=== PATIENT | male | born 1985 | race Caucasian/White ===

== ENCOUNTER 2021-11-07 01:26 | Emergency (ER) | payer BC, SELFPAY ==
[2021-11-07 01:32] VITALS: BP 126/80; PULSE 107; RESP 18; TEMP 36.3; O2SAT 99
[2021-11-07] MEDS: Pantoprazole 40 MG VIAL IVP (01:40)
[2021-11-07] MEDS: Normal Saline 1,000 ML 1000 ML IV (01:40)
[2021-11-07] MEDS: Ondansetron 4 MG/2 ML VIAL IVP (01:40)
--- NOTE | 2021-11-07 01:42 | W.ED.GENAD ---
Discharge Plan Disposition Patient Disposition: HOME Condition: Good Discharge Details Clinical Impression: Gastroenteritis, Dehydration Primary Care Provider: None,None ED Provider: London Banda Home Meds and New Rx's Prescriptions: No Action pantoprazole 40 mg Tablet,Delayed Release (Dr/Ec) 40 mg PO DAILY Discharge Instructions Instructions: Dehydration (ED), Gastroenteritis (ED) Additional Instructions: At this time your symptoms are consistent with a gastroenteritis likely from something that you ate. This usually takes 24 to 48 hours to improve. Please take the Zofran as needed to help with nausea. Continue to hydrate yourself at home, stick with a easy bland diet of crackers, rice, bananas, and toast. Please take your home pantoprazole, and avoid any spicy foods. As we discussed, you do have some gallstones that were noted on your CAT scan. This was an incidental finding and I do not think it is the cause of your symptoms tonight. However in the future if you do develop right upper quadrant pain, this is likely what it would be from. Please avoid greasy or fatty foods. If you notice any worsening of your symptoms, or any new symptoms such as vomiting, diarrhea, fever, chills, shortness of breath, chest pain, numbness, weakness, or fainting , please return immediately to the emergency department for reevaluation. Please follow up with your primary care provider as soon as possible for reassessment and reevaluation. As always, it was a pleasure participating in your medical care today. Medical Decision Making 36-year-old male with a past medical history of gastric ulcers, no previous abdominal surgeries, presents today for vomiting that started at 11:30 PM. States that every 30 minutes he has an episode of vomiting, as well as diarrhea. He denies any hematochezia, melena or acholic stool. He denies any chest pain or shortness of breath. He states that he did eat a piece of pizza from home use this evening, but other people ate a piece as well and no one else was. He admits to periumbilical pain, but denies any other significant pain. He denies any urinary complaints. No genital complaints. No other complaints this time. No other modifying factors. Exam demonstrates dry mucous membranes, mild periumbilical tenderness, no guarding or rebound no. Differential is highest for viral or foodborne illness, we will rehydrate, give Protonix, if CT scan to rule out pancreatitis gallbladder or appendix pathology, will monitor closely and reassess. 3:[address] scan results have returned, no evidence of an acute surgical abdomen requiring surgical intervention. There is evidence of mild enteritis enterocolitis, there is some gallstones, but the patient symptomatology is clinically inconsistent with acute cholecystitis or biliary colic. Differential diagnosis at this time is highest for viral or foodborne illness. He has been rehydrated with a liter of normal saline, he feels much better and much less nauseous. He has been able to tolerate p.o. well. Patient stable for discharge. Laboratory work-up stable, minimal white count, no bandemia. Electrolytes stable, lipase normal. We will give a small bottle of Zofran for home use. Discussed red flags which to return. I have extensively reviewed the treatment plan and discharge instructions with the patient. I have addressed all patient concerns at this time. The patient was made aware of what symptoms to monitor for that would warrant a return to the emergency department. Discussed the plan with the patient, they demonstrate verbal understanding and agreement with our assessment and plan at this time. The documentation in this chart was dictated using adflyer dictation software. Please excuse any dictation errors. FINDINGS: Liver: Fatty infiltration. No mass. Gallbladder and bile ducts: Multiple calcified stones. No ductal dilation. Pancreas: Normal. No ductal dilation. Spleen: Normal. No splenomegaly. Adrenal glands: Normal. No mass. Kidneys and ureters: Normal. No hydronephrosis. Stomach and bowel: Mild small bowel thickening. Fluid levels versus liquid stool in the colon No obstruction. Appendix: No evidence of appendicitis. Intraperitoneal space: Unremarkable. No free air. No significant fluid collection. Vasculature: Unremarkable. No abdominal aortic aneurysm. Lymph nodes: Unremarkable. No enlarged lymph nodes. Urinary bladder: Unremarkable as visualized. Reproductive: Unremarkable as visualized. Bones/joints: Unremarkable. No acute fracture. Soft tissues: Tiny fat containing periumbilical hernia. IMPRESSION: Nonspecific nonobstructed bowel gas pattern which may represent mild enteritis/enterocolitis/diarrheal disease Gallstones Tiny fat containing periumbilical hernia Thank you for allowing us to participate in the care of your patient. Dictated and Authenticated by: Sanju Quiroz MD 11/07/2021 2:26 AM Eastern Time ([place] & [place]) HPI General Date/Time Provider Initiated Documentation: 11/07/21 01:33. HPI Narrative: 36-year-old male with a past medical history of gastric ulcers, no previous abdominal surgeries, presents today for vomiting that started at 11:30 PM. States that every 30 minutes he has an episode of vomiting, as well as diarrhea. He denies any hematochezia, melena or acholic stool. He denies any chest pain or shortness of breath. He states that he did eat a piece of pizza from home use this evening, but other people ate a piece as well and no one else was. He admits to periumbilical pain, but denies any other significant pain. He denies any urinary complaints. No genital complaints. No other complaints this time. No other modifying factors. Related Data Home Medications Medication Instructions Recorded Confirmed pantoprazole 40 mg tablet,delayed 40 mg PO DAILY 11/07/21 11/07/21 release Allergies Allergy/AdvReac Type Severity Reaction Status Date / Time No Known Allergies Allergy Unverified 11/07/21 01:38 General Stated Complaint: Nausea/Vomit/Diar JANETTE: 3 Review of Systems All systems reviewed & are unremarkable except as noted in HPI and below PFSH All Active Problems (Updated 11/07/21 @ 03:12 by London Banda DO) Gastroenteritis (Acute) Dehydration (Acute) Social History Smoking/Tobacco Use Status: Current every day Tobacco Type: cigarettes Smoking risk assessment performed?: Yes Alcohol Intake: current Alcohol Intake frequency: a few times a week Alcohol type: beer Drug use: Never Substance use type: does not use Do you feel safe at home: Yes Do you feel safe in your relationship?: Yes Exam Narrative Exam Narrative: 1.Const: Well-nourished, Well-developed, appearing stated age 2.Eyes: PERRL, no conjunctival injection, and symmetrical lids. 3.ENT: Atraumatic external nose and ears. Notably dry MM. Neck: Symmetric, trachea midline, No thyromegaly. 4.CVS: +S1/S2, No murmurs or gallops. Peripheral pulses 2+ and equal in all extremities. Brisk capillary refill in all extremities. 5.RESP: Unlabored respiratory effort. Clear to auscultation bilaterally. No wheezes rales or rhonchi 6.GI: Soft, nondistended, no guarding or rebound. No. McBurney's point. Negative Duckworth sign. Negative obturator and psoas sign. Mild periumbilical tenderness. No inguinal hernia. No genital tenderness. 7.MSK: Normocephalic/Atraumatic, Extremities w/o deformity or ttp No cyanosis or clubbing, Normal movement of all extremities 8.Skin: Warm, Dry. No rashes or lesions. 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 Sensation grossly intact, no focal neurologic deficits. 10.Psych: (AAO) x3. Appropriate mood and affect Course Vital Signs Vital signs: Vital Signs Temperature 36.3 C L 11/07/21 01:32 Pulse 107 H 11/07/21 01:32 Respiratory Rate 18 11/07/21 01:32 Blood Pressure 126/80 11/07/21 01:32 Pulse Oximetry 99 11/07/21 01:32 Temperature 36.3 C L 11/07/21 01:32 Temperature Source Skin 11/07/21 01:32 Pulse 107 H 11/07/21 01:32 Respiratory Rate 18 11/07/21 01:32 Respiratory Effort Non-Labored 11/07/21 01:35 Blood Pressure 126/80 11/07/21 01:32 Blood Pressure Position Sitting 11/07/21 01:32 Pulse Oximetry 99 11/07/21 01:32 Oxygen Delivery Method Room Air 11/07/21 01:32 Oxygen Flow Rate 0 11/07/21 01:32 Pain Level 8 11/07/21 01:32
[2021-11-07 01:50] LABS: Abs Immature Grans 0.03 10^3/uL (0.0-0.06); Absolute Basophil Count 0.04 10^3/uL (0.0-0.2); Absolute Lymphocyte Count 1.18 10^3/uL (1.2-3.4); Absolute Monocyte Count 0.62 10^3/uL (0.1-0.8); Basophils % 0.3; Eosinophils % 3.2; HCT 48.4 % (40.0-50.0); HGB 16.1 g/dL (13.5-17.5); Immature Grans % 0.2; Lymphocytes % 9.4; MCH 27.9 pg (27.0-33.0); MCHC 33.3 % (32.0-36.0); MCV 84 fL (80-95); MPV 10.6 fL (8.0-11.0); Monocytes % 4.9; Platelet Count 248 10^3/uL (130-400); RBC 5.77 10^6/uL (4.36-5.78); RDW 12.5 % (11.8-14.1); RDW-SD 37.7 fL; WBC 12.56 10^3/uL (4.4-10.8)
--- NOTE | 2021-11-07 01:59 | DI.CT_ITS ---
Exam(s) CT ABDOMEN PELVIS WO EXAM: CT ABDOMEN PELVIS WO CLINICAL HISTORY: vomiting, diarrhea, umbilical abdominal pain. TECHNIQUE: Imaging Protocol: Axial computed tomography images with coronal and sagittal reformatted images were created and reviewed. COMPARISON: No exams were available for comparison FINDINGS: ABDOMEN: Lung Bases: Normal where visualized. Liver: There is diffuse fatty infiltration of the liver. No measurable mass. Gallbladder and biliary tract: Cholelithiasis. No biliary ductal dilatation. Pancreas: Normal density, no abnormal calcifications or inflammatory process. Spleen: Normal. Kidneys: Normal size, contour and axis.No radiodense stones or obstructive uropathy. No masses seen. Adrenal glands: No mass is seen. Lymph nodes: Within normal limits. Abdominal Aorta: Abdominal portion non-dilated. PELVIS: Bladder:Symmetric distention, no gross wall thickening. Bowel: Mild bowel wall thickening is seen in loops of small bowel in the left abdomen. There is also fluid seen throughout the colon. Appendix is unremarkable. Peritoneal cavity: No ascites, collection or mesenteric inflammatory response. No free air. Reproductive organs: Within normal limits. Bones: Within normal limits. Soft Tissues: Within normal limits. IMPRESSION: 1. Mild bowel wall thickening seen in the small bowel loops in the left colon suspicious for an infla mmatory infectious enteritis. 2. Fluid seen throughout the colon which can be seen in a diarrheal illness. 3. Cholelithiasis. No biliary ductal dilatation. RADIATION DOSE DELIVERED: 1,069.5mGy.cm Total DLP DATA REPOSITORY: All CT scans at this facility are submitted to the National Radiology Data Registry (NRDR) Dose Index Registry (DIR) with the [employer] (A[employer]). RADIATION OPTIMIZATION: All CT scans at this facility use at least one of these dose optimization te chniques: automated exposure control; mA and/or kV adjustment per patient size (includes targeted exa ms where dose is matched to clinical indication); or iterative reconstruction.
[2021-11-07 02:05] LABS: ALT 80 U/L (16-63); AST 28 U/L (15-37); Albumin 4.3 g/dL (3.4-5.0); Alkaline Phosphatase 104 U/L (46-116); Anion Gap 8.2 mmol/L (3-11); BUN 16 mg/dL (7-18); Bilirubin, Total 0.7 mg/dL (0.2-1.0); CO2 27.8 mmol/L (21.0-32.0); Calcium 9.2 mg/dL (8.5-10.1); Chloride 103 mmol/L (98-107); Glucose 169 mg/dL (74-106); Lipase 98 U/L (73-393); Potassium 4.1 mmol/L (3.5-5.1); Sodium 139 mmol/L (136-145); Total Protein 7.9 g/dL (6.4-8.2)
--- NOTE | 2021-11-07 02:27 | DI.VRAD_ITS ---
PROCEDURE INFORMATION: Exam: CT Abdomen And Pelvis Without Contrast Exam date and time: 11/07/2021 1:45 AM Age: 36 years old Clinical indication: Patient HX: Vomiting, diarrhea, umbilical abdominal pain TECHNIQUE: Imaging protocol: Computed tomography of the abdomen and pelvis without contrast. Radiation optimization: All CT scans at this facility use at least one of these dose optimization techniques: automated exposure control; mA and/or kV adjustment per patient size (includes targeted exams where dose is matched to clinical indication); or iterative reconstruction. COMPARISON: No relevant prior studies available. FINDINGS: Liver: Fatty infiltration. No mass. Gallbladder and bile ducts: Multiple calcified stones. No ductal dilation. Pancreas: Normal. No ductal dilation. Spleen: Normal. No splenomegaly. Adrenal glands: Normal. No mass. Kidneys and ureters: Normal. No hydronephrosis. Stomach and bowel: Mild small bowel thickening. Fluid levels versus liquid stool in the colon No obstruction. Appendix: No evidence of appendicitis. Intraperitoneal space: Unremarkable. No free air. No significant fluid collection. Vasculature: Unremarkable. No abdominal aortic aneurysm. Lymph nodes: Unremarkable. No enlarged lymph nodes. Urinary bladder: Unremarkable as visualized. Reproductive: Unremarkable as visualized. Bones/joints: Unremarkable. No acute fracture. Soft tissues: Tiny fat containing periumbilical hernia. IMPRESSION: Nonspecific nonobstructed bowel gas pattern which may represent mild enteritis/enterocolitis/diarrheal disease Gallstones Tiny fat containing periumbilical hernia Dictated and Authenticated by: Sanju Quiroz MD. Ordering:ERNESTO Callahan MD
[2021-11-07 03:33] VITALS: BP 117/68; PULSE 88; RESP 14; TEMP 37.3; O2SAT 96
[2021-11-07] MEDS: Ondansetron O.D.T. 4 MG TABEF, 3 TABS/BTL PO (03:35)
== END 2021-11-07 03:50 | disposition home or self-care (01) ==
PROVIDERS: Emergency Provider Student in an Organized Health Care Education/Training Program
DX: K52.9 Noninfective gastroenteritis and colitis, unspecified (principal); E86.0 Dehydration; R19.7 Diarrhea, unspecified; R10.9 Unspecified abdominal pain
CPT/HCPCS: 80053; 83690; 96361; 96374; 96375; 99284; 74176; 81003; 85025; J2405

== ENCOUNTER 2022-09-11 13:45 | Outpatient (REF) | payer BC, SELFPAY ==
[2022-09-11 21:29] LABS: Abs Immature Grans 0.01 10^3/uL (0.0-0.06); Absolute Basophil Count 0.03 10^3/uL (0.0-0.2); Absolute Eosinophil Count 0.28 10^3/uL (0.0-0.7); Absolute Lymphocyte Count 2.28 10^3/uL (1.2-3.4); Absolute Monocyte Count 0.48 10^3/uL (0.1-0.8); Absolute Neutrophil Count 3.37 10^3/uL (1.2-6.7); Basophils % 0.5; Eosinophils % 4.3; HCT 44.8 % (40.0-50.0); HGB 15.1 g/dL (13.5-17.5); Immature Grans % 0.2; Lymphocytes % 35.3; MCH 27.8 pg (27.0-33.0); MCHC 33.7 % (32.0-36.0); MCV 83 fL (80-95); MPV 11.1 fL (8.0-11.0); Monocytes % 7.4; Neutrophils % 52.3; Platelet Count 270 10^3/uL (130-400); RBC 5.43 10^6/uL (4.36-5.78); RDW 12.7 % (11.8-14.1); RDW-SD 37.9 fL; WBC 6.45 10^3/uL (4.4-10.8)
[2022-09-11 22:16] LABS: ALT 64 U/L (16-63); AST 27 U/L (15-37); Albumin 4.3 g/dL (3.4-5.0); Alkaline Phosphatase 100 U/L (46-116); Anion Gap 8.5 mmol/L (3-11); BUN 12 mg/dL (7-18); Bilirubin, Total 0.7 mg/dL (0.2-1.0); CO2 29.5 mmol/L (21.0-32.0); Calcium 9.7 mg/dL (8.5-10.1); Chloride 102 mmol/L (98-107); Estimated GFR 100.66 (mL/min/1.73m2); Glucose 102 mg/dL (74-106); Potassium 4.4 mmol/L (3.5-5.1); Sodium 140 mmol/L (136-145); TSH (W/Ref FT4) 0.96 uIU/mL (0.36-3.74); Total Protein 7.3 g/dL (6.4-8.2)
[2022-09-14 02:15] LABS: COVID-19 RT-PCR UVMMC Result Negative (Negative)
== END 2022-09-11 13:46 | disposition home or self-care (01) ==
LOC: LBN 13:45
PROVIDERS: Visit Provider Physician Assistant Medical
DX: R53.83 Other fatigue (principal); Z20.822 Contact with and (suspected) exposure to COVID-19
CPT/HCPCS: 80053; U0003; 84443; 85025

== ENCOUNTER 2022-09-11 22:30 | Emergency (ER) | payer BC, SELFPAY ==
--- NOTE | 2022-09-11 22:30 | DI.RAD_ITS ---
Exam(s) XR KNEE LT 3V AP,LAT,ELLIE EXAM: XR KNEE LT 3V AP,LAT,ELLIE CLINICAL HISTORY: left knee pain/injury. TECHNIQUE: 2D digital imaging was performed. Three views. COMPARISON: No exams were available for comparison FINDINGS: BONES: No acute fracture is present. No bony destructive lesion is seen. JOINTS: The knee is normally aligned. No joint effusion is seen. SOFT TISSUE: Normal. IMPRESSION: Normal radiographs of the left knee. DATA REPOSITORY: RADIATION DOSE DELIVERED:
[2022-09-11 22:34] VITALS: BP 126/84; PULSE 89; RESP 19; TEMP 36.1; O2SAT 98
[2022-09-11] MEDS: Ibuprofen 600 MG TAB PO (23:02)
--- NOTE | 2022-09-11 23:06 | W.ED.GENAD ---
Discharge Plan Disposition Patient Disposition: Home Discharge Details Clinical Impression: Contusion of knee Primary Care Provider: None,None ED Provider: Kristi Alberts Home Meds and New Rx's Prescriptions: Continued pantoprazole 40 mg Tablet,Delayed Release (Dr/Ec) 40 mg PO DAILY Discharge Instructions Instructions: Contusion in Adults (ED) Additional Instructions: Ibuprofen and Tylenol as needed for pain Wear your knee brace Use your crutches with ambulation Repeat x-ray in 1 week with persistent pain recommended Establish care with primary care physician, you should receive notification Listing orthopedics for follow-up as needed Stand Alone Forms: Work Release Referrals: Shiraz Winn MD [ [facility] STAFF PHYSICIAN] - Discharge Data Discharge Date/Time-TO BE ENTERED AT DEPARTURE: 09/11/22 23:21 Medical Decision Making 37-year-old male presents with left knee injury, x-ray does not show evidence of acute abnormality for my review, pending radiology interpretation Placed in hinged knee brace, given crutches Ibuprofen and Tylenol as needed for pain Repeat x-ray in 1 week with persistent pain recommended Early return precautions reviewed and patient expressed understanding Per radiology interpretation my review, x-ray negative for acute abnormality Medical Records Medical records reviewed: Yes I reviewed the patient's medical records. Lab Data Lab results reviewed: Yes I reviewed the patient's lab results. HPI General Date/Time Provider Initiated Documentation: 09/11/22 22:32. HPI Narrative: This 37-year-old male presents with fall on left knee at home. Denies any additional injuries. Otherwise reportedly healthy. Has pain with weightbearing per patient. Related Data Home Medications Medication Instructions Recorded Confirmed pantoprazole 40 mg tablet,delayed 40 mg PO DAILY 11/07/21 09/11/22 release Allergies Allergy/AdvReac Type Severity Reaction Status Date / Time No Known Allergies Allergy Unverified 09/11/22 22:50 General Stated Complaint: Fall/Non TraumaCriteria JANETTE: 4 PFSH All Active Problems (Updated 09/11/22 @ 23:11 by CINDY Urena) Contusion of knee (Acute) Social History Smoking/Tobacco Use Status: Current every day Tobacco Type: cigarettes Smoking risk assessment performed?: Yes Alcohol Intake: current Alcohol Intake frequency: a few times a week Alcohol type: beer Drug use: Never Substance use type: does not use Do you feel safe at home: Yes Do you feel safe in your relationship?: Yes Exam Narrative Exam Narrative: 37-year-old male, no acute distress, and left knee pain, predominantly over MCL region, ecchymosis noted approximately quarter size Flexion extension intact, no obvious joint laxity No tenderness to left hip or left ankle Neurovascularly intact Const General: cooperative, comfortable and no acute distress Extrem Other: Left knee with ecchymosis over the medial aspect, hematoma forming, no joint laxity no tenderness with palpation to hip or ankle, neurovascularly intact Course Vital Signs Vital signs: Vital Signs Temperature 36.1 C L 09/11/22 22:34 Pulse 89 09/11/22 22:34 Respiratory Rate 19 09/11/22 22:34 Blood Pressure 126/84 09/11/22 22:34 Pulse Oximetry 98 09/11/22 22:34 Temperature 36.1 C L 09/11/22 22:34 Temperature Source Tympanic 09/11/22 22:34 Pulse 89 09/11/22 22:34 Respiratory Rate 19 09/11/22 22:34 Respiratory Effort Normal 09/11/22 22:38 Blood Pressure 126/84 09/11/22 22:34 Blood Pressure Position Standing 09/11/22 22:34 Pulse Oximetry 98 09/11/22 22:34 Oxygen Delivery Method Room Air 09/11/22 22:34 Oxygen Flow Rate 0 09/11/22 22:34 Pain Level 7 09/11/22 23:02
--- NOTE | 2022-09-11 23:15 | DI.VRAD_ITS ---
PROCEDURE INFORMATION: Exam: XR Left Knee Exam date and time: 09/11/2022 10:54 PM Age: 37 years old Clinical indication: Patient HX: Left knee pain/injury TECHNIQUE: Imaging protocol: Radiologic exam of the left knee. Views: 3 views. COMPARISON: No relevant prior studies available. FINDINGS: Bones/joints: Normal. Soft tissues: Normal. IMPRESSION: No acute findings. Dictated and Authenticated by: Sanju Quiroz MD. Ordering:JAD Berry MD
--- NOTE | 2022-09-12 00:05 | NUR.NOTE ---
Referral per Kristi Alberts to care management to establish care with PCP as soon as available. Put the referral in the care clinician's box for assistance.Nursing Note:
--- NOTE | 2022-09-16 13:14 | NUR.NOTE ---
Nursing Note: Patient called stating that he had not heard from anyone about a PCP. I checked the chart and have put a referral for the Care Managers for needs PCP, establish care/follow up ED.
--- NOTE | 2022-09-23 15:16 | NUR.NOTE ---
Nursing Note: Accessed pt chart to see about referral to needs PCP. Two different people did referrals and the patient stated he did not hear from anyone. Today he called again. I made out a referral and faxed it to Dr. Segovia;[facility] for follow up. Dr. Segovia was account consultant for telephone call for that day. I spoke to the patient and notified him that I had faxed the referral and who to so that if he does not receive a call that he can call them for the appt. that he needs.
== END 2022-09-11 23:21 | disposition home or self-care (01) ==
PROVIDERS: Emergency Provider Physician Assistant
DX: S80.02XA Contusion of left knee, initial encounter (principal); W19.XXXA Unspecified fall, initial encounter; Y92.009 Unspecified place in unspecified non-institutional (private) residence as the place of occurrence of the external cause
CPT/HCPCS: 73562; 99283

== ENCOUNTER 2022-09-24 18:24 | Outpatient (CLI) | payer BC, SELFPAY ==
--- NOTE | 2022-09-24 | DI.RAD_ITS ---
Exam(s) XR KNEE LT 3V AP,LAT,ELLIE EXAM: XR KNEE LT 3V AP,LAT,ELLIE CLINICAL HISTORY: ACUTE LEFT KNEE PAIN M25.562. TECHNIQUE: 2D digital imaging was performed. COMPARISON: CR,XR XR KNEE LT 3V AP,LAT,ELLIE from 09/11/2022 FINDINGS: 3 views No evidence of fracture. Small amount of increased joint fluid. No joint space narrowing nor osteop hytes nor osseous lesions. On the lateral view there is slight indentation of the articular surface of the lateral femoral condyle. Is sometimes seen pivot shift injury such as ACL tears if there has been recent such trauma. There are no osteochondral defects. IMPRESSION: Subtle findings as above. If clinically indicated follow-up MRI can be performed for added sensitivi ty and specificity. DATA REPOSITORY: RADIATION DOSE DELIVERED:
== END 2022-09-24 18:44 ==
LOC: DI 18:24
PROVIDERS: Visit Provider Nurse Practitioner Family
DX: M25.562 Pain in left knee (principal)
CPT/HCPCS: 73562

== ENCOUNTER 2022-10-15 04:27 | Outpatient (CLI) | payer BC, SELFPAY ==
--- NOTE | 2022-10-15 07:00 | DI.MRI_ITS ---
Exam(s) MR LOWER JOINT LT WO EXAM: MR LOWER JOINT LT WO CLINICAL HISTORY: PAIN,INTERNAL DERANGEMENT LT KNEE, M23.92 TECHNIQUE: Multiplanar multisequence MRI of the knee was performed. COMPARISON: CR XR KNEE LT 3V AP,LAT,ELLIE from 09/24/2022 FINDINGS: EFFUSION: There is small amount of increased joint fluid. There is no large joint effusion. There i s no Tatum cyst in the popliteal fossa. There is abnormal signal in the superolateral aspect of the anterior intra-articular Hoffa fat pad ev ident. There is no abnormal signal in the quadriceps fat pad triangle above the patella. MARROW:There is subarticular bone contusion signal in the outer 3rd of the medial femoral condyle pre dominately over the anterior horn of the medial meniscus. There is no bone contusion in the lateral femoral condyle nor in the tibial plateau nor intraosseous signal abnormality within the fibular head and neck. There are no significant osseous lesions. PATELLOFEMORAL COMPARTMENT: The quadriceps tendon is intact. The patellar ligament is intact. There is small amount of subcutaneous fluid anterior to the mid aspect of the patellar tendon. There is, however, no abnormal signal in the patellar tendon itself There is no significant thinning of the retropatellar cartilage. No evidence of fissure nor signific ant chondral defect. No osteochondral defect at this level.There is no intraosseous signal to sugges t recent patellar dislocation. There are no patellar retinacular tears. CRUCIATE LIGAMENTS: The anterior cruciate ligament is intact.The posterior cruciate ligament is intac t. MEDIAL COMPARTMENT/MEDIAL MENISCUS: There are no tears of the medial meniscus evident.The meniscal ro ot is intact.. There is focal cartilage thinning over the outer 3rd of the femoral condyle with overlying osseous ed man in the subarticular femoral condyle and extending 2 cm upwards towards but not into the medial me taphysis of the distal femur. This edema pattern is unrelated to the nearby MCL.No abnormal intraoss eous signal in tibial plateau. MEDIAL COLLATERAL LIGAMENT: Intact LATERAL COMPARTMENT/LATERAL MENISCUS: There is no evidence of lateral meniscal tear.There are no phuong dral defects, osteochondral defects, subarticular marrow edema, nor osteophytes evident. ILIOTIBIAL BAND: Intact LATERAL COLLATERAL LIGAMENT COMPLEX: The fibular collateral ligament is intact. The biceps femoris t endon is intact.Popliteus muscle and tendon are intact. IMPRESSION: 1. There is subarticular intraosseous edema in the outer 3rd of the medial femoral condyle over the a nterior weight-bearing surface, this emanating upwards from small focal chondral area just above the anterior horn of the medial meniscus. There is, however, no evidence of meniscal tear at this level and there is no formed osteochondral defect at this time. No loose intra-articular body evident. No other bone contusions evident. 2. There are no meniscal tears and there are no cruciate ligament tears nor collateral ligament tears . 3. There is significant abnormal signal within the superolateral aspect of the anterior intra-articul ar Hoffa fat pad, this subjacent to the lateral aspect of the inferior pole the patella. This findin g is sometimes associated with an element of impingement syndrome. 4. Mild subcutaneous fluid noted anterior to the patellar ligament. However, there is no abnormal in trasubstance signal abnormality in the patellar ligament itself. This fluid does not extend into the prepatellar level and there is no abnormal intraosseous signal in the patella itself. DATA REPOSITORY:
== END 2022-10-15 04:47 ==
LOC: DI 04:27
PROVIDERS: Visit Provider Student in an Organized Health Care Education/Training Program
DX: M23.92 Unspecified internal derangement of left knee (principal)
CPT/HCPCS: 73721

== ENCOUNTER 2022-10-31 22:31 | Emergency (ER) | payer BC, SELFPAY ==
[2022-10-31 22:36] VITALS: BP 115/73; PULSE 62; RESP 16; TEMP 36.5; O2SAT 97
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
--- NOTE | 2022-11-04 16:58 | NUR.NOTE ---
Nursing Note: Accessed chart for [facility] billing purposes.
--- NOTE | 2022-11-04 17:03 | NUR.NOTE ---
Nursing Note: Accessed chart for [facility] billing purposes.
== END 2022-10-31 23:36 | disposition home or self-care (01) ==
PROVIDERS: Emergency Provider Emergency Medicine Emergency Medical Services
DX: S61.432A Puncture wound without foreign body of left hand, initial encounter (principal); W26.0XXA Contact with knife, initial encounter
CPT/HCPCS: 99282

== ENCOUNTER 2024-06-03 17:00 | Outpatient (REF) | payer BC, SELFPAY ==
[2024-06-03 15:12] LABS: ALT 78 U/L (16-63); AST 30 U/L (15-37); Albumin 3.9 g/dL (3.4-5.0); Alkaline Phosphatase 110 U/L (46-116); Anion Gap 8.5 mmol/L (3-11); BUN 14 mg/dL (7-18); Bilirubin, Total 0.69 mg/dL (0.2-1.0); CO2 28.5 mmol/L (21.0-32.0); Calcium 8.8 mg/dL (8.5-10.1); Calculated LDL 138 mg/dL (<100); Chloride 105 mmol/L (98-107); Cholesterol 216 mg/dL (<200); Estimated GFR 99.41 (mL/min/1.73m2); Glucose 102 mg/dL (74-106); HDL Cholesterol 49 mg/dL (40-60); Potassium 4.3 mmol/L (3.5-5.1); Sodium 142 mmol/L (136-145); Total Protein 6.9 g/dL (6.4-8.2); Triglyceride 147 mg/dL (<150)
--- OUTSIDE RECORDS SUMMARY | 2024-06-03 17:02 | XMS_ITS | Continuity of Care Document ---
Author Organization [facility] Ambulatory Clinics Address [address] [place] [address] Encounter [facility] NBR [id number] Date(s): 11/04/22 - 11/04/22 [facility] Ambulatory Clinics [address] [place], [place] [address] Encounter Diagnosis Conjunctivitis(Discharge Diagnosis) - 11/04/22 Acute URI(Discharge Diagnosis) - 11/04/22 Discharge Disposition: Home or Self Care Attending Physician: Chanda Covarrubias APRN Allergies, Adverse Reactions, Alerts No Known Medication Allergies Functional Status 11/04/22 Other exposure to Infectious Disease Non e Medications pantoprazole 40 mg oral delayed release tablet See Instructions, TAKE 1 TABLET BY MOUTH EVERY DAY 30 MINUTES BEFORE BREAKFAST, # 30 tab, 0 Refill(s), Pharmacy: [facility] #[id number] Start Date: 10/31/22 Status: Ordered Vital Signs Most recent to oldest [Reference Range]: 1 Temperature Tympanic [36.6-37.9 Deg C] 3 6.3 Deg C *LOW* (11/04/22 8:01 PM) Peripheral Pulse Rate [60-100 bpm] 65 bp m (11/04/22 8:01 PM) Respiratory Rate [12-24 br/min] 16 br/mi n (11/04/22 8:01 PM) Blood Pressure [90-140/60-90 mmHg] 120/8 5mmHg (11/04/22 8:01 PM) Social History Social History Type Response Tobacco Never tobacco user T obacco Use:. Sex Physician Outpatient Note * Chanda Covarrubias APRN: PERFORM Event Display: Office Clinic Note Physician Authored Date: [id number] CAROLINA JUAREZ :1985 Age:37 years Sex:Male Visit Date:11/04/2022 Chief Complaint eye hurts to blind History of Present Illness Patient is a 37-year-old male who presents today with a chief complaint of left eye redness and positive for drainage and presence of URI symptoms??over the last 2 days. ??He states that his eye has been more irritated, he noted the left lid to be??swollen and noted positive exudate throughout the day.?? He does report that he has had mild congestion and left??ear fullness??over the last few daysas well. Review of Systems see HPI Physical Exam Vitals & Measurements T:??36.3?C ??(Tympanic)?? HR:??65??(Peripheral)?? RR:??16?? BP:??120/85?? SpO2:??100%?? General: Well-appearing, no acute distress, alert and oriented x3. Skin: No concerning lesions in examined areas. Head: Normal cephalic without trauma or injury. Neck: Supple, nontender, normal range of motion Eye: Pupils reactive.?left eye mildly injected. Sclera nonicteric. ??No swelling, obvious foreign bodies. ??Extraocular movement intact. Top lis reddened. ENT ear: Normal external, canal clear, TMs normal bilaterally. ??Nose: No discharge, normal mucosa,no swelling. ??Sinuses: Nontender to percussion. ??Oropharynx: Normal external, mucosal without mass, lesions, ulcerations.?No erythema, exudate, lesions, uvula midline. Cardiovascular: Regular rate and rhythm. ??No murmur, rubs, or gallops. Respiratory: Clear to auscultation bilaterally. ??No wheezes, rales, rhonchi. Medical Decision Making: Patient was evaluated for upper respiratory symptoms. ??Physical exam is unremarkable, vital signs were obtained and reviewed.?Patient will be discharged home with instruction on home care and with viral syndrome, Tylenol or ibuprofen for pain or fever, increase fluid intake, provide rest.?? Warm soaks to eye as needed.??Follow-up with primary care for lack of improvement. ??Seek urgent and/oremergent care for increased shortness of breath, fever, worsening cough or any other worsening or concerning symptoms. Assessment/Plan 1.??Conjunctivitis??H10.9 2.??Acute URI??J06.9 Problem List/Past Medical History Ongoing No qualifying data Historical No qualifying data Medications pantoprazole 40 mg oral delayed release tablet, See Instructions Allergies No Known Medication Allergies Social History Electronic Cigarette/Vaping Electronic Cigarette Use: Never. Tobacco Never tobacco user Tobacco Use:. Electronically Signed on 11/04/22 10:02 PM Chanda Covarrubias APRN
--- OUTSIDE RECORDS SUMMARY | 2024-06-03 17:02 | XMS_ITS | Referral Summary ---
Author Organization [facility] Address [address] [place] [address] Care Team Providers Care Career Technical Counselor Name Role Phone Unknown, Provider Primary Care Provider Unava ilable Social History Tobacco Use Types Packs/Day Years Used Date Smoking Tobacco: Never Assessed Sex and Gender Information Value Date Recorded Sex Assigned at Not on file Legal Sex Male 9:59 EDT Gender Identity Not on file Sexual Orientation Not on file Plan of Treatment Not on file Insurance ANTHEM ANTHEM Care Teams Career Technical Counselor Relationship Specialty Start Date End Date Unknown, Provider, PCP - General 10/14/21
--- OUTSIDE RECORDS SUMMARY | 2024-06-03 17:02 | XMS_ITS | Encounter Summary ---
Author Organization [facility] Address [address] [place] [address] Care Team Providers Care First Coat Operator Name Role Phone Unknown, Provider Primary Care Provider Fredi bermudez Encounter Details Date Type Department Care Team (Late st Contact Info) Description 11/27/2021 Lab Requisition [facility] - Main [address] [id number] Antoni Vaughan MD [address] [place] [phone] Gastro-esophageal reflux disease without esophagitis; Personal history of peptic ulcer disease Social History Tobacco Use Types Packs/Day Years Used Date Smoking Tobacco: Never Assessed Sex and Gender Information Value Date Recorded Sex Assigned at Not on file Legal Sex Male 9:59 EDT Gender Identity Not on file Sexual Orientation Not on file documented as of this encounter Plan of Treatment Not on file documented as of this encounter Procedures Procedure Name Priority Date/Time Associated Diagnosis Comments SURGICAL PATHOLOGY Today 11/26/2021 13 :20 EDT Gastro-esophageal reflux disease without esophagitis Personal history of peptic ulcer disease documented in this encounter Results * SURGICAL PATHOLOGY (11/26/2021 13:20 EDT) Note to Patient The following pathology results have been interpreted by your pathologist and may be available to you before your health provider has had the opportunity to review them. Please allow time for your provider to receive these results and explore management options, if applicable. 11/28/2021 13:47 EDT [facility] Final Diagnosis A. DUODENUM, POLYP, BIOPSY: - Peptic duodenitis. B. STOMACH, ANTRUM, BIOPSY: - Reactive (chemical) gastropathy. - No intestinal metaplasia or dysplasia. - No evidence of Helicobacter pylori on routine H&E stain. C. STOMACH, BODY, BIOPSY: - Oxyntic-type mucosa with no significant pathologic change. - No intestinal metaplasia or dysplasia. - No evidence of Helicobacter pylori on routine H&E stain. D. GASTROESOPHAGEAL JUNCTION, BIOPSY: - Junctional mucosa with focal active inflammation and reactive changes. - No intestinal metaplasia or dysplasia. 11/28/2021 13:47 [facility] Attestation By the signature below, the attending physician certifies that they have 1) personally conducted a gross and/or microscopic examination of the described specimen(s), and/or personally interpreted the results of laboratory testing of the described specimen(s), and 2) personally rendered or confirmed the above diagnosis. 11/28/2021 13:47 [facility] at 1347 Clinical History GERD, hx of peptic ulcer disease, gastric erythema 11/28/2021 13:47 [facility] Gross Description A. Received in formalin labeled ? Kj M. Padgett? and ? duodenal polyp? are 2 mucosal tissue fragments measuring 0.2 x 0.2 x 0.1 cm and 0.3 x 0.2 x 0.1 cm. Entirely submitted in 1 cassette. B. Received in formalin labeled ? Kj M[employer]gett? and ? antrum? are 2 mucosal tissue fragments each measuring 0.2 x 0.1 x 0.1 cm. Entirely submitted in 1 cassette. C. Received in formalin labeled ? Kj M. Padgett? and ? gastric body? are 2 mucosal tissue fragments measuring 0.2 x 0.2 x 0.2 cm and 0.5 x 0.2 x 0.1 cm. Entirely submitted in 1 cassette. D. Received in formalin labeled ? Kj M. Padgett? and ? EGJ? is a single mucosal tissue fragment measuring 0.4 x 0.2 x 0.2 cm. Entirely submitted in 1 cassette. KAYODE TALAMANTES 11/27/2021 12:39 11/28/2021 13:47 [facility] Performing Lab [facility] 13:47 [facility] Scanned Images 11/28/2021 13:47 EDT [facility] Tissue ENTIRE ESOPHAGO-PATRICIO GUIDO MUCOSAL JUNCTION / Unknown 11/26/2021 13:20 EDT 11/27/2021 10:02 EDT Tissue specimen (specimen) PYLORIC ANTRUM STRUCTURE / Unknown 11/26/2021 13:20 EDT 11/27/2021 10:02 EDT Tissue specimen (specimen) GASTRIC CORPUS STRUCTURE / Unknown 11/26/2021 13:20 EDT 11/27/2021 10:02 EDT Tissue specimen (specimen) CARDIOESOPHAGEAL JUNCTION STRUCTURE / Unknown 11/26/2021 13:20 EDT 11/27/2021 10:02 EDT us Antoni Vaughan MD PATHOLOGY ORDERABLES Final Result [facility] [address] [place] [address] documented in this encounter Visit Diagnoses Diagnosis Gastro-esophageal reflux disease without esophagitis Esophageal reflux Personal history of peptic ulcer disease documented in this encounter Care Teams First Coat Operator Relationship Specialty Start Date End Date Unknown, Provider, PCP - General 10/14/21 documented as of this encounter
--- OUTSIDE RECORDS SUMMARY | 2024-06-03 17:02 | XMS_ITS | Clinical Summary ---
Author Organization [facility] Address [address] [place] [address] Care Team Providers Care Cylinder Block Hole Reliner Name Role Phone Unknown, Provider Primary Care Provider Unava ilable Social History Tobacco Use Types Packs/Day Years Used Date Smoking Tobacco: Never Assessed Sex and Gender Information Value Date Recorded Sex Assigned at Not on file Legal Sex Male 9:59 EDT Gender Identity Not on file Sexual Orientation Not on file Plan of Treatment Health Maintenance Due Date Last Done Comments Hepatitis C Screen 1985 Hepatitis B Vaccine (1 of 3 - 19+ 3-dose series) 02/10 COVID-19 Vaccine ( season) 2024 Insurance ANTHEM ANTHEM Care Teams Cylinder Block Hole Reliner Relationship Specialty Start Date End Date Unknown, Provider, PCP - General 10/14/21
--- OUTSIDE RECORDS SUMMARY | 2024-06-03 17:02 | XMS_ITS | Encounter Summary ---
Author Organization [facility] Address [address] [place] [address] Care Team Providers Care Head Rigger Name Role Phone Unknown, Provider Primary Care Provider Fredi bermudez Encounter Details Date Type Department Care Team (Late st Contact Info) Description 09/13/2022 Lab Requisition [facility] - [facility] [address] [place] [address] Outr Resulting Lab, Provider Social History Tobacco Use Types Packs/Day Years [...] Procedure Name Priority Date/Time Associated Diagnosis Comments ZZCOVID-19 TEST [facility] PCR Today 09/11/2022 13:30 EDT COVID-19 TESTING Routine 09/11/2022 13:3 0 EDT documented in this encounter Results * COVID-19 TEST [facility] PCR (09/11/2022 13:30 EDT) Swab ENTIRE NASOPHARYNX / Unknown 09/11/2022 13:30 EDT 09/13/2022 21:02 EDT us Provider Outr Resulting Lab MICROBIOLOGY - GENER AL ORDERABLES Final Result [facility] [address] [place] [address] * COVID-19 TESTING (09/11/2022 13:30 EDT) COVID-19 rt-PCR Result Negative Negative 09/14/2022 2:10 EDT [facility] Comment: This test has not been FDA cleared or approved. This test has been authorized by FDA under an EUA for use by authorized laboratories. This test has been authorized only for detection of nucleic acid from 2019-nCoV, not for any other viruses or pathogens. This test is only authorized for the duration of the declaration that circumstances exist justifying the authorization of emergency use of in vitro diagnostic tests for detection and/or diagnosis of 2019-nCoV under section 564(b)(1) of Act, 21 U.S.C ?? 360bbb-3(b) (1), unless the authorization is terminated or revoked sooner. Negative results do not preclude 2019-nCoV infection and should not be used as the sole basis for treatment or other patient management decisions. Negative results must be combined with clinical observations, patient history, and epidemiological information. Performed on the Semadicher Fusion instrument Performing Lab [facility] 09/14/2022 2:10 EDT [facility] Swab ENTIRE NASOPHARYNX / Unknown 09/11/2022 13:30 EDT 09/13/2022 21:02 EDT us Provider Outr Resulting Lab MICROBIOLOGY - GENER AL ORDERABLES Final Result [facility] [address] [place] [address] documented in this encounter Visit Diagnoses Not on filedocumented in this encounter Care Teams Head Rigger Relationship Specialty Start Date End Date Unknown, Provider, PCP - General 10/14/21 documented as of this encounter
== END 2024-06-03 17:01 | disposition home or self-care (01) ==
LOC: NCHCN 17:00
PROVIDERS: Visit Provider Student in an Organized Health Care Education/Training Program
DX: Z13.228 Encounter for screening for other metabolic disorders (principal); Z13.220 Encounter for screening for lipoid disorders
CPT/HCPCS: 80053; 80061

== ENCOUNTER 2024-11-18 16:51 | Outpatient (REF) | payer BC, SELFPAY | END 2024-11-18 16:52 | disposition home or self-care (01) | LOC: LBN 16:51 | PROVIDERS: Visit Provider Physician Assistant | DX: J02.9 Acute pharyngitis, unspecified (principal) | CPT/HCPCS: 87070 ==

== ENCOUNTER 2024-12-07 10:17 | Outpatient (CLI) | payer BC, SELFPAY ==
--- NOTE | 2024-12-07 10:49 | DI.RAD_ITS ---
Exam(s) XR KNEE RT 3V AP,LAT,ELLIE EXAM: XR KNEE RT 3V AP,LAT,ELLIE CLINICAL HISTORY: trauma to right knee, pain S80.01XA CONTUSION RT KNEE, TRAUMATIC ECCHYMOSIS. TECHNIQUE: 2D digital imaging was performed. Three views. COMPARISON: None FINDINGS: BONES: No acute fracture is present. No bony destructive lesion is seen. JOINTS: The knee is normally aligned. No joint effusion is seen. SOFT TISSUE: Normal. IMPRESSION: Unremarkable radiographs of the right knee. DATA REPOSITORY: RADIATION DOSE DELIVERED:
== END 2024-12-07 10:37 ==
LOC: DI 10:21
PROVIDERS: Visit Provider Nurse Practitioner Acute Care
DX: S80.01XA Contusion of right knee, initial encounter (principal); X58.XXXA Exposure to other specified factors, initial encounter; M25.561 Pain in right knee
CPT/HCPCS: 73562

== ENCOUNTER 2024-12-10 23:03 | Outpatient (REF) | payer BC, SELFPAY ==
[2024-12-10 15:38] LABS: ALT 94 U/L (16-63); AST 29 U/L (15-37); Alkaline Phosphatase 106 U/L (46-116); Anion Gap 7.9 mmol/L (3-11); BUN 17 mg/dL (7-18); Bilirubin, Total 0.8 mg/dL (0.2-1.0); CO2 29.1 mmol/L (21.0-32.0); CREATININE 0.8 mg/dL (0.70-1.30); Calcium 8.7 mg/dL (8.5-10.1); Calculated LDL 146 mg/dL (<100); Chloride 102 mmol/L (98-107); Cholesterol 250 mg/dL (<200); Glucose 95 mg/dL (74-106); HDL Cholesterol 42 mg/dL (>or=40); Potassium 4.3 mmol/L (3.5-5.1); Sodium 139 mmol/L (136-145); Total Protein 7.1 g/dL (6.4-8.2); Triglyceride 311 mg/dL (<150)
== END 2024-12-10 23:04 | disposition home or self-care (01) ==
LOC: NCHCN 23:03
PROVIDERS: Visit Provider Student in an Organized Health Care Education/Training Program
DX: R74.01 Elevation of levels of liver transaminase levels (principal); E78.5 Hyperlipidemia, unspecified
CPT/HCPCS: 80053; 80061

== ENCOUNTER 2025-03-16 14:42 | Outpatient (CLI) | payer BC, SELFPAY ==
--- NOTE | 2025-03-16 14:00 | DI.RAD_ITS ---
Exam(s) XR FOOT RT COMPLETE EXAM: XR FOOT RT COMPLETE CLINICAL HISTORY: eval osteo. puncture wound,increased redness, edema plantar 3rd mtp. TECHNIQUE: 2D digital imaging was performed. Three views. COMPARISON: No exams were available for comparison FINDINGS: BONES: No acute fracture is present. No bony destructive lesion is seen. There is an ossicle at the base of the 5th metatarsal. JOINTS: No dislocation present. SOFT TISSUE: Soft tissues are partially obscured on the lateral view since it was performed weight-bearing. No foreign body is visible. IMPRESSION: Unremarkable radiographs of the right foot. DATA REPOSITORY: RADIATION DOSE DELIVERED:
== END 2025-03-16 15:02 ==
LOC: DI 14:44
PROVIDERS: Visit Provider Nurse Practitioner Family
DX: S99.821A Other specified injuries of right foot, initial encounter (principal); X58.XXXA Exposure to other specified factors, initial encounter
CPT/HCPCS: 73630